=== PATIENT | male | born 1965 | race Caucasian/White ===

== ENCOUNTER 2016-05-03 08:38 | Emergency (ER) | payer MEDICAID ==
[~2016-05-03] VITALS: Wt 80.0 kg
[~2016-05-03 08:38] MED LIST: BAC30OI TOP; BACTDS PO
[2016-05-03] MEDS ORDERED: GUAI-637 PO (09:48)
[2016-05-03] MEDS ORDERED: IBUP-1542 PO (09:48)
--- NOTE | 2016-05-03 09:59 | ERD ---
ER Documentation Chief Complaint Date/Time DATE: 05/03/16 TIME: 09:54 Chief Complaint sore throat with intermittent fevers for the past few hours. HPI 50-year-old male complaining of sore throat 3 days. Patient states that he had a subjective fever last night. He has a cough, and lower back pain with cough. He is unable to sleep last night because of cough and back pain. Denies nasal congestion. Denies shortness of breath. ROS All systems reviewed and are negative except as per history of present illness. Medications Home Meds Active Scripts Guaifenesin* (Robitussin*) 100 Mg/5 Ml Syrup, 200 MG PO Q4H Y for COUGH, #120 ML Prov:KARISHMA MORA. PRINCIPAL SOFTWARE ENGINEER 05/03/16 Ibuprofen* (Motrin*) 600 Mg Tab, 600 MG PO Q6H Y for PAIN AND OR ELEVATED TEMP, #30 TAB Prov:KARISHMA MORA. PRINCIPAL SOFTWARE ENGINEER 05/03/16 Bacitracin* (Bacitracin Zinc Oint*) 28.35 Gm Oint, 1 APPLIC TOP BID, #1 TUB APPLI TO Prov:FADY WEAVER PA-C 06/21/15 Sulfamethoxazole-Trimethoprim* (Bactrim* DS) 800-160 Mg Tab, 1 TAB PO BID for 5 Days, TAB Prov:FADY WEAVER PA-C 06/21/15 Allergies Allergies: Coded Allergies: Penicillins (Verified Allergy, Unknown, 06/15/15) PMhx/Soc History of Surgery: Yes (LEFT ELBOW SURGERY ) Anesthesia Reaction: No Hx Neurological Disorder: No Hx Respiratory Disorders: No Hx Cardiac Disorders: No Hx Psychiatric Problems: No Hx Miscellaneous Medical Probl: Yes (HTN) Hx Alcohol Use: No Hx Substance Use: No Hx Tobacco Use: No Smoking Status: Never smoker Physical Exam Vitals Vital Signs Date Time Temp Pulse Resp B/P Pulse Ox O2 Delivery O2 Flow Rate FiO2 05/03/16 08:42 98.8 81 20 133/64 98 Physical Exam General impression: Well-developed, well-nourished, 50-year-old male, alert, oriented, in no acute distress Head: Normocephalic, atraumatic. Eyes: Conjunctiva not injected. ENT: Nasal mucosa, oral mucosa are normal. Mild erythema in the oropharynx, no pharyngeal swelling or exudates. Neck: Supple, nontender. No lymphanopathy. No nuchal rigidity. Respiration: Normal respiratory effort. Lungs clear to auscultate bilaterally. No wheezes, rales or rhonchi. Cardiovascular: Regular rate and rhythm. No murmurs or extra heart sounds. Abdomen: Abdomen normal to inspection. Nontender. No masses or organomegaly. Bowel sounds normal. Back: Normal to inspection. No midline spine tenderness. No CVA tenderness. Paraspinal muscle spasm noted bilaterally in the lumbar region. Neuro: Mental status normal, speech normal. Skin: Normal turgor. No rash or lesions. Psych: Normal mood and affect. Procedures/MDM Patient is afebrile, in no respiratory distress. Lungs are clear to auscultate. I doubt that patient has pneumonia or bronchitis. Likely patient's symptoms are result of viral upper respiratory infection. Patient also has lower back muscle spasm. I doubt spinal fracture, subluxation, disc herniation, or spinal epidural abscess. Patient appears well, stable for discharge and outpatient management. Medical decision making shared with patient and family. Education provided to patient and family. Patient and family expressed understanding of the plan. Medications on discharge: Ibuprofen, guaifenesin. Follow-up: Primary care provider in 2-3 days or return to ED if worse. Departure Diagnosis: Primary Impression: URI (upper respiratory infection) URI type: acute nasopharyngitis (common cold) Qualified Code: J00 - Acute nasopharyngitis Additional Impression: Back spasm Condition: Stable Patient Instructions: Adult Self-Care for Colds, Back Spasm, No Trauma Referrals: [facility] Usted se john hecho un examen mdico de control que le indica que no est en madeline condicin que requiera tratamiento urgente en el Departamento de Emergencia. Un estudio ms profundo y el tratamiento de rodríguez condicin pueden esperar sin ningn riesgo hasta que usted sea atendida/o en el consultorio de rodríguez mdico o madeline cl aletha. Es responsabilidad suya arreglar madeline geraldine para el seguimiento del ena. MANEJO DE CONDICIONES NO URGENTES EN EL FUTURO 1) Si usted tiene un mdico de atencin primaria: Usted debera llamar a rodríguez mdico de atencin primaria antes de venir al departamento de emergencia. Despus de las horas de consultorio, rodríguez doctor o rodríguez asociado/a est disponible por telfono. El mdico o enfermero de reji en el servicio telefnico puede asesorarle por lopez medio para atender el problema, o ena contrario se puede programar madeline geraldine. 2) Si usted no tiene un mdico de atencin primaria: Llame al mdico o clnica de referencia que aparece abajo snow las horas de consultorio para hacer madeline geraldine para que le vean. CLINICAS: [facility] [phone] [facility] [phone] [facility] [phone] [place] [phone] [place] [id number] [phone] [facility] [phone] Additional Instructions: Llame al doctor MAANA y gregg madeline GERALDINE PARA DENTRO DE 2-3 MURRIETA.Dgale a la secretaria que nosotros le instruimos hacer esta geraldine.Avise o llame si rodríguez condicin se empeora antes de la geraldine. Regresa aqui si peor o no mejor. KARISHMA MORA NP May 03, 2016 09:59
== END 2016-05-03 10:13 | disposition home or self-care (01) ==
LOC: FTE 08:38
DX: J00 Acute nasopharyngitis [common cold] (principal); M62.830 Muscle spasm of back; I10 Essential (primary) hypertension
CPT/HCPCS: 99283

== ENCOUNTER 2016-07-02 08:22 | Emergency (ER) | END 2016-07-02 09:00 | disposition home or self-care (01) | DX: R21 Rash and other nonspecific skin eruption (principal); I10 Essential (primary) hypertension ==

== ENCOUNTER 2017-02-15 19:19 | Emergency (ER) | payer MEDICAID ==
[~2017-02-15] VITALS: Ht 170.2 cm; Wt 81.5 kg
[~2017-02-15 19:19] MED LIST changes: -BAC30OI TOP; +BACI28.34 TOP; +CLOB60CR2 TOP; +GUAI-637 PO; +IBUP-1542 PO
[2017-02-15 19:31] VITALS: Ht 170.2 cm; Wt 81.5 kg
[2017-02-15 23:26] VITALS: BP 145/84; PULSE 55; RESP 20
--- NOTE | 2017-02-16 01:31 | RADRPT ---
PROCEDURE: CT HEAD WITHOUT CONTRAST: CLINICAL INDICATION: 51 years of age, male. 6-month history of right arm and leg on and off . TECHNIQUE: CT of the head was performed without IV contrast. Coronal and sagittal reformatted images were obtained from the axial source images. Images were reviewed on a high-resolution PACS workstat ion. Dose information: The estimated radiation dose (CTDIvol mGy) for each series in this exam is 44. Th e estimated cumulative dose (DLP mGy-cm) is a 720. One or more of the following dose reduction techniques were used: - Automated exposure control. - Adjustment of the mA and/or kV according to patient size. - Use of iterative reconstruction technique. COMPARISON: None available. FINDINGS: Parenchyma: Negative for evidence of acute intraparenchymal hemorrhage, mass effect or large territo ry infarct. Davila-white matter differentiation is maintained. Ventricles and extra-axial spaces: Appropriate for age. No abnormal extra-axial fluid collections ar e identified. Negative for evidence of acute subarachnoid or extra-axial hemorrhage. Visualized paranasal sinuses: Clear. Mastoid air cells: Clear. Bones: No focal abnormality. Additional comment: None. IMPRESSION: Negative CT brain for age. Negative for evidence of an acute intracranial abnormality. Cause for pat ient's symptoms is not evident. RPTAT: HCTS Physician Fernando Date Time Electronically viewed and signed by Physician Fernando on 02/16/2017 01:31 CS/
[2017-02-16] MEDS ORDERED: HYDR25TA6 PO (01:41)
--- NOTE | 2017-02-16 01:55 | ERD ---
ER Documentation Chief Complaint Chief Complaint Pt. not taking med for B/P, he has no primary MD. HPI 51-year-old male history of hypertension presents for a medication refill. The patient does state that he was able to get an appointment for Saturday at a nearby [facility] clinic for his hypertension, this but does not recall the medication. Since he has run out he has been drinking a tea states that he has a dull achy headache. He had denies blurred vision, nausea, chest pain, shortness of breath. As the patient was about to be discharged she then started complaining of right arm numbness and right leg numbness that has been on and off for 6 months lasting up to 2-3 minutes. At this time he denies paresthesias. He has not had any motor weakness. ROS All systems reviewed and are negative except as per history of present illness. Medications Home Meds Active Scripts Hydrochlorothiazide* (Hydrochlorothiazide*) 25 Mg Tab, 25 MG PO DAILY, #15 TAB Prov:FADY WEAVER PA-C 02/16/17 Clobetasol Propionate* (Clobetasol Propionate*) 60 Gm Cream.gm., 1 APPLIC TOP BID, #1 TUB Prov:JOSIAH MCKEE AQUEDUCT AND RESERVOIR KEEPER 07/02/16 Guaifenesin* (Robitussin*) 100 Mg/5 Ml Syrup, 200 MG PO Q4H Y for COUGH, #120 ML Prov:KARISHMA MORA AQUEDUCT AND RESERVOIR KEEPER 05/03/16 Ibuprofen* (Motrin*) 600 Mg Tab, 600 MG PO Q6H Y for PAIN AND OR ELEVATED TEMP, #30 TAB Prov:KARISHMA MORA AQUEDUCT AND RESERVOIR KEEPER 05/03/16 Bacitracin* (Bacitracin Zinc Oint*) 28.35 Gm Oint, 1 APPLIC TOP BID, #1 TUB APPLI TO Prov:FADY WEAVER PA-C 06/21/15 Sulfamethoxazole-Trimethoprim* (Bactrim* DS) 800-160 Mg Tab, 1 TAB PO BID for 5 Days, TAB Prov:FADY WEAVER PA-C 06/21/15 Allergies Allergies: Coded Allergies: Penicillins (Verified Allergy, Unknown, 06/15/15) PMhx/Soc History of Surgery: Yes (LEFT ELBOW SURGERY ) Anesthesia Reaction: No Hx Neurological Disorder: No Hx Respiratory Disorders: No Hx Cardiac Disorders: No Hx Psychiatric Problems: No Hx Miscellaneous Medical Probl: Yes (HTN) Hx Alcohol Use: No Hx Substance Use: No Hx Tobacco Use: No Physical Exam Vitals Vital Signs Date Time Temp Pulse Resp B/P Pulse Ox O2 Delivery O2 Flow Rate FiO2 02/15/17 23:26 55 20 145/84 99 Room Air 02/15/17 19:31 98.7 60 20 165/103 98 Physical Exam General: Well-developed, well-nourished. The patient appears in no acute distress. HEENT: Head is normocephalic, atraumatic. No scleral icterus. Pupils are equal , round, and reactive. Neck: Supple. Nontender. Lungs: Clear to auscultation. Normal air movement. Heart: Regular rate and rhythm. S1 and S2 are normal. No murmurs, gallops, or rubs. Abdomen: Soft, nontender, nondistended. Bowel sounds are normoactive. Extremities: No clubbing or cyanosis. Normal pulses. Moving extremities x 4. No weakness. Neuro: M/S: Alert and oriented Face: EOMI, CN II-XII grossly intact Motor: Normal strength throughout Sensation: Normal sensation throughout Speech: Normal Cerebel: Normal coordination Normal gait Normal finger to nose DTR: 2+ and symmetric upper/lower extremities Skin: Normal turgor. No rash or lesions. Results 24 hrs DIAGNOSTIC IMAGING REPORT Patient: MARY KATE REESE : 1965 Age: 51 Sex: M MR #: [id number] DOS: 02/15/17 2358 Ordering MD: FADY WEAVER PA-C Location: [facility] Room/Bed: PROCEDURE: CT HEAD WITHOUT CONTRAST: CLINICAL INDICATION: 51 years of age, male. 6-month history of right arm and leg on and off . TECHNIQUE: CT of the head was performed without IV contrast. Coronal and sagittal reformatted images were obtained from the axial source images. Images were reviewed on a high-resolution PACS workstation. Dose information: The estimated radiation dose (CTDIvol mGy) for each series in this exam is 44. The estimated cumulative dose (DLP mGy-cm) is a 720. One or more of the following dose reduction techniques were used: - Automated exposure control. - Adjustment of the mA and/or kV according to patient size. - Use of iterative reconstruction technique. COMPARISON: None available. FINDINGS: Parenchyma: Negative for evidence of acute intraparenchymal hemorrhage, mass effect or large territory infarct. Davila-white matter differentiation is maintained. Ventricles and extra-axial spaces: Appropriate for age. No abnormal extra-axial fluid collections are identified. Negative for evidence of acute subarachnoid or extra-axial hemorrhage. Visualized paranasal sinuses: Clear. Mastoid air cells: Clear. Bones: No focal abnormality. Additional comment: None. IMPRESSION: Negative CT brain for age. Negative for evidence of an acute intracranial abnormality. Cause for patient's symptoms is not evident. RPTAT: HCTS Physician Fernando Date Time Electronically viewed and signed by Pravin Lundberg Physician on 02/16/2017 01: 31 CS/ CC: FADY WEAVER PA-C Procedures/[facility] 51-year-old male comes in with history of hypertension, is currently not on medication but has an appointment for early next week. Patient does not show any history concerning for hypertensive urgency or emergency or focal neurologic changes. His examination is normal and reports that he has had on and off paresthesias to his right arm as well as his right leg. Patient CT scan of the head does not show evidence of ischemia, or evidence of infarct. This is likely a peripheral paresthesias but may be followed up with his primary care doctor. He will be given hydrochlorothiazide for 2 weeks, but was advised that he needs a follow-up with a primary care doctor for further evaluation and management of his hypertension. Patient's blood pressure was elevated (>120/80) but appears stable without evidence of hypertension emergency or urgency. The patient was counseled about the risks of hypertension and urged to pursue outpatient monitoring and therapy within a week with their primary care physician. Departure Diagnosis: Primary Impression: Paresthesias Additional Impression: Hypertension Condition: Good Patient Instructions: High Blood Pressure (Hypertension), Paraesthesias Additional Instructions: Llame al doctor BARRIE y gregg madeline GERALDINE PARA DENTRO DE 1-2 MURRIETA.Dgale a la secretaria que nosotros le instruimos hacer esta geraldine.Avise o llame si rodríguez condicin se empeora antes de la geraldine. Regresa aqui si peor o no mejor. FADY WEAVER PA-C Feb 16, 2017 01:55
--- NOTE | 2017-02-16 01:55 | ERD ---
ER Documentation Chief Complaint Chief Complaint Pt. not taking med for B/P, he has no primary MD. HPI 51-year-old male history of hypertension presents for a medication refill. The patient does state that he was able to get an appointment for Saturday at a nearby [facility] clinic for his hypertension, this but does not recall the medication. Since he has run out he has been drinking a tea states that he has a dull achy headache. He had denies blurred vision, nausea, chest pain, shortness of breath. As the patient was about to be discharged she then started complaining of right arm numbness and right leg numbness that has been on and off for 6 months lasting up to 2-3 minutes. At this time he denies paresthesias. He has not had any motor weakness. ROS All systems reviewed and are negative except as per history of present illness. Medications Home Meds Active Scripts Hydrochlorothiazide* (Hydrochlorothiazide*) 25 Mg Tab, 25 MG PO DAILY, #15 TAB Prov:FADY WEAVER PA-C 02/16/17 Clobetasol Propionate* (Clobetasol Propionate*) 60 Gm Cream.gm., 1 APPLIC TOP BID, #1 TUB Prov:JOSIAH MCKEE ROAD GANG SUPERVISOR 07/02/16 Guaifenesin* (Robitussin*) 100 Mg/5 Ml Syrup, 200 MG PO Q4H Y for COUGH, #120 ML Prov:KARISHMA MORA ROAD GANG SUPERVISOR 05/03/16 Ibuprofen* (Motrin*) 600 Mg Tab, 600 MG PO Q6H Y for PAIN AND OR ELEVATED TEMP, #30 TAB Prov:KARISHMA MORA ROAD GANG SUPERVISOR 05/03/16 Bacitracin* (Bacitracin Zinc Oint*) 28.35 Gm Oint, 1 APPLIC TOP BID, #1 TUB APPLI TO Prov:FADY WEAVER PA-C 06/21/15 Sulfamethoxazole-Trimethoprim* (Bactrim* DS) 800-160 Mg Tab, 1 TAB PO BID for 5 Days, TAB Prov:FADY WEAVER PA-C 06/21/15 Allergies Allergies: Coded Allergies: Penicillins (Verified Allergy, Unknown, 06/15/15) PMhx/Soc History of Surgery: Yes (LEFT ELBOW SURGERY ) Anesthesia Reaction: No Hx Neurological Disorder: No Hx Respiratory Disorders: No Hx Cardiac Disorders: No Hx Psychiatric Problems: No Hx Miscellaneous Medical Probl: Yes (HTN) Hx Alcohol Use: No Hx Substance Use: No Hx Tobacco Use: No Physical Exam Vitals Vital Signs Date Time Temp Pulse Resp B/P Pulse Ox O2 Delivery O2 Flow Rate FiO2 02/15/17 23:26 55 20 145/84 99 Room Air 02/15/17 19:31 98.7 60 20 165/103 98 Physical Exam General: Well-developed, well-nourished. The patient appears in no acute distress. HEENT: Head is normocephalic, atraumatic. No scleral icterus. Pupils are equal , round, and reactive. Neck: Supple. Nontender. Lungs: Clear to auscultation. Normal air movement. Heart: Regular rate and rhythm. S1 and S2 are normal. No murmurs, gallops, or rubs. Abdomen: Soft, nontender, nondistended. Bowel sounds are normoactive. Extremities: No clubbing or cyanosis. Normal pulses. Moving extremities x 4. No weakness. Neuro: M/S: Alert and oriented Face: EOMI, CN II-XII grossly intact Motor: Normal strength throughout Sensation: Normal sensation throughout Speech: Normal Cerebel: Normal coordination Normal gait Normal finger to nose DTR: 2+ and symmetric upper/lower extremities Skin: Normal turgor. No rash or lesions. Results 24 hrs DIAGNOSTIC IMAGING REPORT Patient: MARY KATE REESE : 1965 Age: 51 Sex: M MR #: [id number] DOS: 02/15/17 2358 Ordering MD: FADY WEAVER PA-C Location: [facility] Room/Bed: PROCEDURE: CT HEAD WITHOUT CONTRAST: CLINICAL INDICATION: 51 years of age, male. 6-month history of right arm and leg on and off . TECHNIQUE: CT of the head was performed without IV contrast. Coronal and sagittal reformatted images were obtained from the axial source images. Images were reviewed on a high-resolution PACS workstation. Dose information: The estimated radiation dose (CTDIvol mGy) for each series in this exam is 44. The estimated cumulative dose (DLP mGy-cm) is a 720. One or more of the following dose reduction techniques were used: - Automated exposure control. - Adjustment of the mA and/or kV according to patient size. - Use of iterative reconstruction technique. COMPARISON: None available. FINDINGS: Parenchyma: Negative for evidence of acute intraparenchymal hemorrhage, mass effect or large territory infarct. Davila-white matter differentiation is maintained. Ventricles and extra-axial spaces: Appropriate for age. No abnormal extra-axial fluid collections are identified. Negative for evidence of acute subarachnoid or extra-axial hemorrhage. Visualized paranasal sinuses: Clear. Mastoid air cells: Clear. Bones: No focal abnormality. Additional comment: None. IMPRESSION: Negative CT brain for age. Negative for evidence of an acute intracranial abnormality. Cause for patient's symptoms is not evident. RPTAT: HCTS Physician Fernando Date Time Electronically viewed and signed by Pravin Lundberg Physician on 02/16/2017 01: 31 CS/ CC: FADY WEAVER PA-C Procedures/[facility] 51-year-old male comes in with history of hypertension, is currently not on medication but has an appointment for early next week. Patient does not show any history concerning for hypertensive urgency or emergency or focal neurologic changes. His examination is normal and reports that he has had on and off paresthesias to his right arm as well as his right leg. Patient CT scan of the head does not show evidence of ischemia, or evidence of infarct. This is likely a peripheral paresthesias but may be followed up with his primary care doctor. He will be given hydrochlorothiazide for 2 weeks, but was advised that he needs a follow-up with a primary care doctor for further evaluation and management of his hypertension. Patient's blood pressure was elevated (>120/80) but appears stable without evidence of hypertension emergency or urgency. The patient was counseled about the risks of hypertension and urged to pursue outpatient monitoring and therapy within a week with their primary care physician. Departure Diagnosis: Primary Impression: Paresthesias Additional Impression: Hypertension Condition: Good Patient Instructions: High Blood Pressure (Hypertension), Paraesthesias Additional Instructions: Llame al doctor BARRIE y gregg madeline GERALDINE PARA DENTRO DE 1-2 MURRIETA.Dgale a la secretaria que nosotros le instruimos hacer esta geraldine.Avise o llame si rodríguez condicin se empeora antes de la geraldine. Regresa aqui si peor o no mejor. FADY WEAVER PA-C Feb 16, 2017 01:55
--- NOTE | 2017-02-16 01:55 | ERD ---
ER Documentation Chief Complaint Chief Complaint Pt. not taking med for B/P, he has no primary MD. HPI 51-year-old male history of hypertension presents for a medication refill. The patient does state that he was able to get an appointment for Saturday at a nearby [facility] for his hypertension, this but does not recall the medication. Since he has run out he has been drinking a tea states that he has a dull achy headache. He had denies blurred vision, nausea, chest pain, shortness of breath. As the patient was about to be discharged she then started complaining of right arm numbness and right leg numbness that has been on and off for 6 months lasting up to 2-3 minutes. At this time he denies paresthesias. He has not had any motor weakness. ROS All systems reviewed and are negative except as per history of present illness. Medications Home Meds Active Scripts Hydrochlorothiazide* (Hydrochlorothiazide*) 25 Mg Tab, 25 MG PO DAILY, #15 TAB Prov:FADY WEAVER PA-C 02/16/17 Clobetasol Propionate* (Clobetasol Propionate*) 60 Gm Cream.gm., 1 APPLIC TOP BID, #1 TUB Prov:JOSIAH MCKEE VENTILATION WORKER 07/02/16 Guaifenesin* (Robitussin*) 100 Mg/5 Ml Syrup, 200 MG PO Q4H Y for COUGH, #120 ML Prov:KARISHMA MORA VENTILATION WORKER 05/03/16 Ibuprofen* (Motrin*) 600 Mg Tab, 600 MG PO Q6H Y for PAIN AND OR ELEVATED TEMP, #30 TAB Prov:KARISHMA MORA VENTILATION WORKER 05/03/16 Bacitracin* (Bacitracin Zinc Oint*) 28.35 Gm Oint, 1 APPLIC TOP BID, #1 TUB APPLI TO Prov:FADY WEAVER PA-C 06/21/15 Sulfamethoxazole-Trimethoprim* (Bactrim* DS) 800-160 Mg Tab, 1 TAB PO BID for 5 Days, TAB Prov:FADY WEAVER PA-C 06/21/15 Allergies Allergies: Coded Allergies: Penicillins (Verified Allergy, Unknown, 06/15/15) PMhx/Soc History of Surgery: Yes (LEFT ELBOW SURGERY ) Anesthesia Reaction: No Hx Neurological Disorder: No Hx Respiratory Disorders: No Hx Cardiac Disorders: No Hx Psychiatric Problems: No Hx Miscellaneous Medical Probl: Yes (HTN) Hx Alcohol Use: No Hx Substance Use: No Hx Tobacco Use: No Physical Exam Vitals Vital Signs Date Time Temp Pulse Resp B/P Pulse Ox O2 Delivery O2 Flow Rate FiO2 02/15/17 23:26 55 20 145/84 99 Room Air 02/15/17 19:31 98.7 60 20 165/103 98 Physical Exam General: Well-developed, well-nourished. The patient appears in no acute distress. HEENT: Head is normocephalic, atraumatic. No scleral icterus. Pupils are equal , round, and reactive. Neck: Supple. Nontender. Lungs: Clear to auscultation. Normal air movement. Heart: Regular rate and rhythm. S1 and S2 are normal. No murmurs, gallops, or rubs. Abdomen: Soft, nontender, nondistended. Bowel sounds are normoactive. Extremities: No clubbing or cyanosis. Normal pulses. Moving extremities x 4. No weakness. Neuro: M/S: Alert and oriented Face: EOMI, CN II-XII grossly intact Motor: Normal strength throughout Sensation: Normal sensation throughout Speech: Normal Cerebel: Normal coordination Normal gait Normal finger to nose DTR: 2+ and symmetric upper/lower extremities Skin: Normal turgor. No rash or lesions. Results 24 hrs DIAGNOSTIC IMAGING REPORT Patient: MARY KATE REESE : 1965 Age: 51 Sex: M MR #: [id number] DOS: 02/15/17 2358 Ordering MD: FADY WEAVER PA-C Location: [facility] Room/Bed: PROCEDURE: CT HEAD WITHOUT CONTRAST: CLINICAL INDICATION: 51 years of age, male. 6-month history of right arm and leg on and off . TECHNIQUE: CT of the head was performed without IV contrast. Coronal and sagittal reformatted images were obtained from the axial source images. Images were reviewed on a high-resolution PACS workstation. Dose information: The estimated radiation dose (CTDIvol mGy) for each series in this exam is 44. The estimated cumulative dose (DLP mGy-cm) is a 720. One or more of the following dose reduction techniques were used: - Automated exposure control. - Adjustment of the mA and/or kV according to patient size. - Use of iterative reconstruction technique. COMPARISON: None available. FINDINGS: Parenchyma: Negative for evidence of acute intraparenchymal hemorrhage, mass effect or large territory infarct. Davila-white matter differentiation is maintained. Ventricles and extra-axial spaces: Appropriate for age. No abnormal extra-axial fluid collections are identified. Negative for evidence of acute subarachnoid or extra-axial hemorrhage. Visualized paranasal sinuses: Clear. Mastoid air cells: Clear. Bones: No focal abnormality. Additional comment: None. IMPRESSION: Negative CT brain for age. Negative for evidence of an acute intracranial abnormality. Cause for patient's symptoms is not evident. RPTAT: HCTS Physician Fernando Date Time Electronically viewed and signed by Pravin Lundberg Physician on 02/16/2017 01: 31 CS/ CC: FADY WEAVER PA-C Procedures/[facility] 51-year-old male comes in with history of hypertension, is currently not on medication but has an appointment for early next week. Patient does not show any history concerning for hypertensive urgency or emergency or focal neurologic changes. His examination is normal and reports that he has had on and off paresthesias to his right arm as well as his right leg. Patient CT scan of the head does not show evidence of ischemia, or evidence of infarct. This is likely a peripheral paresthesias but may be followed up with his primary care doctor. He will be given hydrochlorothiazide for 2 weeks, but was advised that he needs a follow-up with a primary care doctor for further evaluation and management of his hypertension. Patient's blood pressure was elevated (>120/80) but appears stable without evidence of hypertension emergency or urgency. The patient was counseled about the risks of hypertension and urged to pursue outpatient monitoring and therapy within a week with their primary care physician. Departure Diagnosis: Primary Impression: Paresthesias Additional Impression: Hypertension Condition: Good Patient Instructions: High Blood Pressure (Hypertension), Paraesthesias Additional Instructions: Llame al doctor BARRIE y gregg madeline GERALDINE PARA DENTRO DE 1-2 MURRIETA.Dgale a la secretaria que nosotros le instruimos hacer esta geraldine.Avise o llame si rodríguez condicin se empeora antes de la geraldine. Regresa aqui si peor o no mejor. FADY WEAVER PA-C Feb 16, 2017 01:55
== END 2017-02-16 02:05 | disposition home or self-care (01) ==
LOC: FTE 19:19
DX: R20.2 Paresthesia of skin (principal); I10 Essential (primary) hypertension
CPT/HCPCS: 70450; Z7502

== ENCOUNTER 2017-11-19 21:11 | Emergency (ER) | END 2017-11-20 01:10 | disposition home or self-care (01) ==

== ENCOUNTER 2017-12-07 15:31 | Emergency (ER) | END 2017-12-07 18:15 | disposition home or self-care (01) ==

== ENCOUNTER 2018-01-20 20:06 | Emergency (ER) | END 2018-01-20 22:30 | disposition home or self-care (01) ==

== ENCOUNTER 2018-09-05 18:05 | Observation (INO) | payer MEDICAID ==
[~2018-09-05] VITALS: Ht 165.1 cm; Wt 79.9 kg
[~2018-09-05 18:05] MED LIST changes: +ACET500C5 PO; +CEPH-443 PO; +HYDR-4011 PO; +HYDR25TA6 PO; +LORA10CA PO
[2018-09-05] MEDS ORDERED: ASPIRIN 81 MG TAB PO STA (18:26)
[2018-09-05] MEDS ORDERED: NITROGLYCERIN 2% 1 GM OINT PKT TD STA (18:26)
[2018-09-05] MEDS ORDERED: NITROGLYCERIN (SL) 0.4 MG TAB SL PRN ×2 (18:30→23:30)
[2018-09-05] MEDS ORDERED: ACETAMINOPHEN 325 MG TAB PO PRN (20:00)
[2018-09-05] MEDS ORDERED: ONDANSETRON 4 MG INJ IV PRN ×2 (20:00→23:30)
--- NOTE | 2018-09-05 21:06 | ERD ---
ER Documentation Chief Complaint Chief Complaint CHEST PAIN X5 DAYS, SENT BY PCP HPI Patient is a 53-year-old male with no medical problems who presents with chest pain. The patient was sent by his primary doctor for chest pain. He has left- sided chest pain which started on Saturday. It comes and goes. He has had no treatment yet for the pain. He took an 81 mg aspirin today. He goes to a local clinic but does not know the name of his primary doctor. ROS All systems reviewed and are negative except as per history of present illness. Medications Home Meds Active Scripts Loratadine* (Claritin*) 10 Mg Capsule, 10 MG PO DAILY, #15 CAP Prov:BONNY BRITOC 01/20/18 Acetaminophen* (Tylophen*) 500 Mg Capsule, 1 CAP PO Q6H PRN for PAIN AND OR ELEVATED TEMP, #30 CAP Prov:MATILDA FUNEZC 12/07/17 Cephalexin* (Keflex*) 500 Mg Capsule, 500 MG PO QID for 7 Days, CAP Prov:MATILDA FUNEZC 12/07/17 Hydrocodone/Acetaminophen (Brutus 5-325 Tablet) 1 Each Tablet, 1 TAB PO Q6H PRN for SEVERE PAIN LEVEL 7-10, #20 TAB Prov:MANSI MENDOZA NP 11/20/17 Ibuprofen* (Motrin*) 600 Mg Tab, 600 MG PO Q6H PRN for PAIN AND OR ELEVATED TEMP, #30 TAB Prov:MANSI MENDOZA NP 11/20/17 Hydrochlorothiazide* (Hydrochlorothiazide*) 25 Mg Tab, 25 MG PO DAILY, #15 TAB Prov:FADY WEAVERC 02/16/17 Clobetasol Propionate* (Clobetasol Propionate*) 60 Gm Cream.gm., 1 APPLIC TOP BID, #1 TUB Prov:JOSIAH MCKEE PUBLIC TRANSIT SPECIALIST 07/02/16 Guaifenesin* (Robitussin*) 100 Mg/5 Ml Syrup, 200 MG PO Q4H PRN for COUGH, #120 ML Prov:KARISHMA MORA NP 05/03/16 Ibuprofen* (Motrin*) 600 Mg Tab, 600 MG PO Q6H PRN for PAIN AND OR ELEVATED TEMP, #30 TAB Prov:KARISHMA MORA PUBLIC TRANSIT SPECIALIST 05/03/16 Bacitracin* (Bacitracin Zinc Oint*) 28.35 Gm Oint, 1 APPLIC TOP BID, #1 TUB APPLI TO Prov:FADY WEAVER PA-C 06/21/15 Sulfamethoxazole-Trimethoprim* (Bactrim* DS) 800-160 Mg Tab, 1 TAB PO BID for 5 Days, TAB Prov:FADY WEAVER PA-C 06/21/15 Allergies Allergies: Coded Allergies: Penicillins (Verified Allergy, Unknown, 01/20/18) PMhx/Soc History of Surgery: Yes (LEFT ELBOW SURGERY ) Anesthesia Reaction: No Hx Neurological Disorder: No Hx Respiratory Disorders: No Hx Cardiac Disorders: No Hx Psychiatric Problems: No Hx Miscellaneous Medical Probl: No Hx Alcohol Use: Yes Hx Substance Use: No Hx Tobacco Use: No Smoking Status: Never smoker FmHx Family History: No coronary disease Physical Exam Vitals Vital Signs Date Temp Pulse Resp B/P (MAP) Pulse Ox O2 O2 Flow FiO2 Time Delivery Rate 09/05/18 99.1 59 17 119/82 98 20:54 (94) 09/05/18 99.1 66 16 128/84 99 19:43 (99) 09/05/18 99.1 64 16 143/79 99 18:50 (100) 09/05/18 99.1 69 16 156/92 99 18:18 (113) Physical Exam Const: No acute distress Head: Atraumatic Eyes: Normal Conjunctiva ENT: Normal External Ears, Nose and Mouth. Neck: Full range of motion. No meningismus. Resp: Clear to auscultation bilaterally Cardio: Regular rate and rhythm, no murmurs Abd: Soft, non tender, non distended. Normal bowel sounds Skin: No petechiae or rashes Back: No midline or flank tenderness Ext: No cyanosis, or edema Neur: Awake and alert Psych: Normal Mood and Affect Result Diagram: 09/05/18 18309/05/18 183 Results 24 hrs Laboratory Tests Test 09/05/18 18:31 White Blood Count 4.5 10^3/ul Red Blood Count 4.92 10^6/ul Hemoglobin 14.2 g/dl Hematocrit 42.0 % Mean Corpuscular Volume 85.4 fl Mean Corpuscular Hemoglobin 28.9 pg Mean Corpuscular Hemoglobin Concent 33.8 g/dl Red Cell Distribution Width 11.9 % Platelet Count 221 10^3/UL Mean Platelet Volume 9.0 fl Immature Granulocytes % 0.400 % Neutrophils % 63.5 % Lymphocytes % 19.9 % Monocytes % 13.2 % Eosinophils % 2.6 % Basophils % 0.4 % Nucleated Red Blood Cells % 0.0 /100WBC Immature Granulocytes # 0.020 10^3/ul Neutrophils # 2.9 10^3/ul Lymphocytes # 0.9 10^3/ul Monocytes # 0.6 10^3/ul Eosinophils # 0.1 10^3/ul Basophils # 0.0 10^3/ul Nucleated Red Blood Cells # 0.0 10^3/ul Sodium Level 143 mmol/L Potassium Level 3.8 mmol/L Chloride Level 106 mmol/L Carbon Dioxide Level 29 mmol/L Anion Gap 8 Blood Urea Nitrogen 17 mg/dl Creatinine 0.72 mg/dl Est Glomerular Filtrat Rate mL/min > 60 mL/min Glucose Level 136 mg/dl Calcium Level 8.6 mg/dl Troponin I < 0.012 ng/ml Current Medications Medications Dose Sig/Yasmine Start Time Status Last (Trade) Ordered Route PRN Stop Time Admin Dose Reason Admin Aspirin 162 mg ONCE STAT 09/05/18 DC 09/05/18 (Aspirin) PO 18:26 18:45 09/05/18 18:27 1 inch ONCE STAT 09/05/18 DC 09/05/18 Nitroglycerin TD 18:26 18:45 09/05/18 18:27 (Nitroglyceri n 2% Oint) 1 tab Q5M UP TO 3 09/05/18 09/05/18 Nitroglycerin DOSES PRN 18:30 18:45 SL .CHEST (Nitroglyceri PAIN n (Sl Tab) 0.4 Mg) Ondansetron 4 mg ER BRIDGE 09/05/18 HCl (Zofran PRN IV 20:00 Inj) NAUSEA/VOMITI 09/06/18 19:59 NG 650 mg ER BRIDGE 09/05/18 Acetaminophen PRN PO 20:00 (Tylenol .MILD PAIN 09/06/18 19:59 Tab) 1-3 OR TEMP Procedures/MDM EKG #1 read by me: Rate/Rhythm: Regular rate and rhythm at a normal rate Intervals: Normal Impression: Flipped T waves diffusely EKG #2 read by me: Rate/Rhythm: Regular rate and rhythm at a normal rate Intervals: Normal Impression: Flipped T waves diffusely Chest x-ray read by radiology. Patient is a 53-year-old male who presents with chest pain. He has an abnormal EKG x2 with flipped T waves diffusely. I am concerned for possible acute c oronary syndrome. I doubt pneumonia, pneumothorax, pulmonary embolism, or aortic dissection. The patient will be admitted to the care of the panel team to a telemetry observation bed. He was given aspirin and nitroglycerin empirically. Departure Diagnosis: Primary Impression: Chest pain Chest pain type: unspecified Qualified Codes: R07.9 - Chest pain, unspecified Condition: LUKAS Austin MD September 05, 2018 21:06
[2018-09-05 22:47] VITALS: Ht 165.1 cm; Wt 79.9 kg
[2018-09-05 23:00] VITALS: BP 164/90; PULSE 57; RESP 20
[2018-09-05 23:09] VITALS: PULSE 52
--- NOTE | 2018-09-05 23:24 | HP ---
Date/Time of Note Date/Time of Note DATE: 09/05/18 TIME: 23:24 Assessment/Plan VTE Prophylaxis Pharmacological prophylaxis: other Lines/Catheters IV Catheter Type (from Nrsg): Saline Lock Assessment/Plan Assessment/Plan 53-year-old male with no significant past medical history presents with chest pain with EKG showing diffuse T wave inversion, first troponin is negative. Need to rule out ACS. PLAN -Telemetry monitoring -Aspirin, as needed nitro -Serial troponin -Beta-esperanza if heart rate allows -2D echo and cardiology consult -Check A1c, fasting lipid and TSH in a.m. Result Diagram: 09/05/18 1831 09/05/18 1831 Results 24hrs Laboratory Tests Test 09/05/18 18:31 White Blood Count 4.5 L Red Blood Count 4.92 Hemoglobin 14.2 Hematocrit 42.0 Mean Corpuscular Volume 85.4 Mean Corpuscular Hemoglobin 28.9 L Mean Corpuscular Hemoglobin Concent 33.8 Red Cell Distribution Width 11.9 Platelet Count 221 Mean Platelet Volume 9.0 Immature Granulocytes % 0.400 Neutrophils % 63.5 Lymphocytes % 19.9 Monocytes % 13.2 H Eosinophils % 2.6 Basophils % 0.4 Nucleated Red Blood Cells % 0.0 Immature Granulocytes # 0.020 Neutrophils # 2.9 Lymphocytes # 0.9 Monocytes # 0.6 Eosinophils # 0.1 Basophils # 0.0 Nucleated Red Blood Cells # 0.0 Sodium Level 143 Potassium Level 3.8 Chloride Level 106 Carbon Dioxide Level 29 Anion Gap 8 Blood Urea Nitrogen 17 Creatinine 0.72 Est Glomerular Filtrat Rate mL/min > 60 Glucose Level 136 Calcium Level 8.6 Troponin I < 0.012 HPI/ROS Admit Date/Time Admit Date/Time September 05, 2018 at 19:52 Hx of Present Illness This is a 53-year-old male with no significant past medical history who was sent by his PCP for chest pain. Chest pain is left-sided and has been going on for a few days. Denied significant shortness of breath, nausea/vomiting or diaphoresis. When he presented to the ER, EKG shows diffuse T wave inversion, no ST elevation or depression. First troponin is negative. PMH/Family/Social Past Medical History Medical History: other (See HPI) Past Surgical History Past Surgical Hx: other (See HPI) Family History Significant Family History: no pertinent family hx Social History Alcohol Use: none Smoking Status: Never smoker Drug Use: none Exam Constitutional: no acute distress Head: normocephalic, atraumatic Eyes: EOMI, PERRL Respiratory: clear to auscultation, normal air movement Cardiovascular: regular rate and rhythm, nl pulses Gastrointestinal: soft, non-tender Extremities: normal pulses Medications Current Medications Nitroglycerin (Nitroglycerin (Sl Tab) 0.4 Mg) 1 tab Q5M UP TO 3 DOSES PRN SL .CHEST PAIN Last administered on 09/05/18at 18:45; Admin Dose 1 TAB; Start 09/05/18 at 18:30 Ondansetron HCl (Zofran Inj) 4 mg ER BRIDGE PRN IV NAUSEA/VOMITING; Start 09/05/18 at 20:00; Stop 09/06/18 at 19:59 Acetaminophen (Tylenol Tab) 650 mg ER BRIDGE PRN PO .MILD PAIN 1-3 OR TEMP; Start 09/05/18 at 20:00; Stop 09/06/18 at 19:59 Coded Allergies: Penicillins (Verified Allergy, Unknown, 01/20/18) Social History Smoking Status: Never smoker Exam/Review of Systems Vital Signs Vitals Vital Signs Date Temp Pulse Resp B/P (MAP) Pulse Ox O2 O2 Flow FiO2 Time Delivery Rate 09/05/18 52 23:09 09/05/18 18 135/92 100 Room Air 22:35 (106) 09/05/18 99.1 21:56 OBNNY MELENDEZ MD September 05, 2018 23:24
[2018-09-05] MEDS ORDERED: NACL 0.9% 3 ML SYG IV SCH (23:30)
[2018-09-05] MEDS ORDERED: GUAIFENESIN 20 MG/ML 5ML CUP PO PRN (23:30)
[2018-09-05] MEDS ORDERED: ACETAMINOPHEN 500 MG TAB PO PRN (23:30)
[2018-09-05] MEDS ORDERED: ALBUTEROL/IPRATROPIUM (NEB) 3 ML AMP HHN PRN (23:30)
[2018-09-05] MEDS ORDERED: IBUPROFEN 600 MG TAB PO PRN (23:30)
[2018-09-05] MEDS ORDERED: HYDROCODONE/APAP (5/325) TAB PO PRN (23:30)
[2018-09-06] VITALS (12 sets, daily range): BP systolic 124–143; BP diastolic 59–78; PULSE 53–79; RESP 18–19
[2018-09-06] MEDS: ASPIRIN 81 MG TAB PO SCH (08:31)
[2018-09-06] MEDS: LORATADINE 10 MG TAB PO SCH (08:32)
[2018-09-06] MEDS: HYDROCHLOROTHIAZIDE 25 MG TAB PO SCH (08:32)
[2018-09-06] MEDS: HEPARIN 5,000 UNIT/1 ML VIAL SC SCH ×2 (08:40→20:43)
[2018-09-06] MEDS: BACITRACIN 0.5%/ZINC 28.35 GM OINT TOP SCH ×2 (09:00→21:00)
[2018-09-06] MEDS ORDERED: BACITRACIN 0.5%/ZINC 28.35 GM OINT TOP SCH (09:00)
--- NOTE | 2018-09-06 13:50 | PN ---
Date/Time of Note Date/Time of Note DATE: 09/06/18 TIME: 13:48 Assessment/Plan VTE Prophylaxis Risk score (from Nsg)>0 risk: 1 SCD applied (from Nsg): Yes Pharmacological prophylaxis: other Lines/Catheters IV Catheter Type (from Nrsg): Saline Lock Assessment/Plan Hospital Course S: Patient denies chest pain presently. O: VS- see below PE: Const: Lying in bed, no acute distress Head: Atraumatic Eyes: Normal Conjunctiva ENT: Normal External Ears, Nose and Mouth. Neck: Full range of motion. No meningismus. Resp: Clear to auscultation bilaterally Cardio: Regular rate and rhythm, no murmurs Abd: Soft, non tender, non distended. Normal bowel sounds Ext: No cyanosis, or edema Neuro: No focal deficits Assessment/Plan: 53-year-old male with no significant past medical history presents with chest pain with EKG showing diffuse T wave inversion, first troponin is negative. Need to rule out ACS. PLAN -Continue telemetry monitoring,-Aspirin, as needed nitro -Serial troponin x 3 are negative, but given the EKG findings we will go ahead and consult cardiology team -Consider beta-esperanza if heart rate allows -Follow-up results/recommendations of 2D echo and cardiology consult Result Diagram: 09/06/18 0610 09/06/18 0610 Results 24hrs Laboratory Tests Test 09/05/18 18:31 09/06/18 01:01 09/06/18 06:10 White Blood Count 4.5 L 5.9 # Red Blood Count 4.92 4.58 L Hemoglobin 14.2 13.2 L Hematocrit 42.0 39.0 L Mean Corpuscular Volume 85.4 85.2 Mean Corpuscular Hemoglobin 28.9 L 28.8 L Mean Corpuscular Hemoglobin Concent 33.8 33.8 Red Cell Distribution Width 11.9 12.0 Platelet Count 221 191 Mean Platelet Volume 9.0 9.2 Immature Granulocytes % 0.400 0.200 Neutrophils % 63.5 68.5 Lymphocytes % 19.9 17.7 Monocytes % 13.2 H 11.1 H Eosinophils % 2.6 2.2 Basophils % 0.4 0.3 Nucleated Red Blood Cells % 0.0 0.0 Immature Granulocytes # 0.020 0.010 Neutrophils # 2.9 4.0 Lymphocytes # 0.9 1.0 Monocytes # 0.6 0.7 Eosinophils # 0.1 0.1 Basophils # 0.0 0.0 Nucleated Red Blood Cells # 0.0 0.0 Sodium Level 143 142 Potassium Level 3.8 3.8 Chloride Level 106 108 Carbon Dioxide Level 29 28 Anion Gap 8 6 Blood Urea Nitrogen 17 20 Creatinine 0.72 0.61 Est Glomerular Filtrat Rate mL/min > 60 > 60 Glucose Level 136 100 Calcium Level 8.6 8.3 L Troponin I < 0.012 < 0.012 < 0.012 Creatine Kinase 132 114 Creatine Kinase Index 2.1 2.2 Creatinine Kinase MB (Mass) 2.81 H 2.48 H Hemoglobin A1c 5.2 Magnesium Level 2.1 Total Bilirubin 0.7 Direct Bilirubin 0.00 Indirect Bilirubin 0.7 Aspartate Amino Transf (AST/SGOT) 29 Alanine Aminotransferase (ALT/SGPT) 33 Alkaline Phosphatase 84 Total Protein 6.2 Albumin 3.5 Globulin 2.70 Albumin/Globulin Ratio 1.29 Triglycerides Level 98 Cholesterol Level 160 LDL Cholesterol, Calculated 98 HDL Cholesterol 42 Cholesterol/HDL Ratio 3.8 Thyroid Stimulating Hormone (TSH) 2.790 Exam/Review of Systems Exam Vitals Vital Signs Date Temp Pulse Resp B/P (MAP) Pulse Ox O2 O2 Flow FiO2 Time Delivery Rate 09/06/18 98.0 79 18 124/72 96 11:32 (89) 09/06/18 Nasal 04:48 Cannula 09/06/18 2.0 01:26 Intake and Output 09/05/18 09/05/18 09/06/18 1515:00 23:00 07:00 IntakeIntake Total 450 ml BalanceBalance 450 ml Results Results 24hrs Laboratory Tests Test 09/05/18 18:31 09/06/18 01:01 09/06/18 06:10 White Blood Count 4.5 L 5.9 # Red Blood Count 4.92 4.58 L Hemoglobin 14.2 13.2 L Hematocrit 42.0 39.0 L Mean Corpuscular Volume 85.4 85.2 Mean Corpuscular Hemoglobin 28.9 L 28.8 L Mean Corpuscular Hemoglobin Concent 33.8 33.8 Red Cell Distribution Width 11.9 12.0 Platelet Count 221 191 Mean Platelet Volume 9.0 9.2 Immature Granulocytes % 0.400 0.200 Neutrophils % 63.5 68.5 Lymphocytes % 19.9 17.7 Monocytes % 13.2 H 11.1 H Eosinophils % 2.6 2.2 Basophils % 0.4 0.3 Nucleated Red Blood Cells % 0.0 0.0 Immature Granulocytes # 0.020 0.010 Neutrophils # 2.9 4.0 Lymphocytes # 0.9 1.0 Monocytes # 0.6 0.7 Eosinophils # 0.1 0.1 Basophils # 0.0 0.0 Nucleated Red Blood Cells # 0.0 0.0 Sodium Level 143 142 Potassium Level 3.8 3.8 Chloride Level 106 108 Carbon Dioxide Level 29 28 Anion Gap 8 6 Blood Urea Nitrogen 17 20 Creatinine 0.72 0.61 Est Glomerular Filtrat Rate mL/min > 60 > 60 Glucose Level 136 100 Calcium Level 8.6 8.3 L Troponin I < 0.012 < 0.012 < 0.012 Creatine Kinase 132 114 Creatine Kinase Index 2.1 2.2 Creatinine Kinase MB (Mass) 2.81 H 2.48 H Hemoglobin A1c 5.2 Magnesium Level 2.1 Total Bilirubin 0.7 Direct Bilirubin 0.00 Indirect Bilirubin 0.7 Aspartate Amino Transf (AST/SGOT) 29 Alanine Aminotransferase (ALT/SGPT) 33 Alkaline Phosphatase 84 Total Protein 6.2 Albumin 3.5 Globulin 2.70 Albumin/Globulin Ratio 1.29 Triglycerides Level 98 Cholesterol Level 160 LDL Cholesterol, Calculated 98 HDL Cholesterol 42 Cholesterol/HDL Ratio 3.8 Thyroid Stimulating Hormone (TSH) 2.790 Medications Medication Current Medications Ondansetron HCl (Zofran Inj) 4 mg ER BRIDGE PRN IV NAUSEA/VOMITING; Start 09/05/18 at 20:00; Stop 09/06/18 at 19:59 Acetaminophen (Tylenol Tab) 650 mg ER BRIDGE PRN PO .MILD PAIN 1-3 OR TEMP; Start 09/05/18 at 20:00; Stop 09/06/18 at 19:59 IV Flush (NS 3 ml) 3 ml PER PROTOCOL IV ; Start 09/05/18 at 23:30 Ondansetron HCl (Zofran Inj) 4 mg Q6H PRN IV NAUSEA/VOMITING; Start 09/05/18 at 23:30 Aspirin (Aspirin) 81 mg DAILY PO Last administered on 09/06/18at 08:31; Admin Dose 81 MG; Start 09/06/18 at 09:00 Nitroglycerin (Nitroglycerin (Sl Tab) 0.4 Mg) 1 tab Q5M PRN SL .CHEST PAIN; Start 09/05/18 at 23:30 Heparin Sodium (Porcine) (Heparin (5000 Units/1ml)) 5,000 unit Q12 SC Last administered on 09/06/18at 08:40; Admin Dose 5,000 UNIT; Start 09/06/18 at 09:00 Albuterol/ Ipratropium (Duoneb) 3 ml Q2H RESP THERAPY PRN HHN SHORTNESS OF MAR[place] ANTONIO ATH; Start 09/05/18 at 23:30 Acetaminophen (Tylenol Tab) 650 mg Q6H PRN PO MILD PAIN(1-5)OR ELEVATED TEMP; Start 09/05/18 at 23:30 Guaifenesin (Robitussin Liquid Cup) 200 mg Q4H PRN PO COUGH; Start 09/05/18 at 23:30 Hydrochlorothiazide (Hydrochlorothiazide) 25 mg DAILY PO Last administered on 09/06/18at 08:32; Admin Dose 25 MG; Start 09/06/18 at 09:00 Acetaminophen/ Hydrocodone Bitart (Byars (5/325)) 1 tab Q6H PRN PO SEVERE PAIN LEVEL 7-10; Start 09/05/18 at 23:30 Ibuprofen (Motrin) 600 mg Q6H PRN PO MILD PAIN(1-3)OR ELEVATED TEMP; Start 09/05/18 at 23:30 Loratadine (Claritin) 10 mg DAILY PO Last administered on 09/06/18at 08:32; Admin Dose 10 MG; Start 09/06/18 at 09:00 Bacitracin (Bacitracin 0.5%/ Zinc Oint) 1 applic BID TOP ; Start 09/06/18 at 09:00 ISABELL RANGEL September 06, 2018 13:50
--- NOTE | 2018-09-06 22:47 | CONS ---
DATE OF ADMISSION: 09/05/2018 DATE OF CONSULTATION: 09/06/2018 REASON FOR CONSULTATION: Chest pain, assess for acute coronary syndrome. REQUESTING PHYSICIAN: Silvestre Sal MD HISTORY OF PRESENT ILLNESS: Mr. Day is a very pleasant 53-year-old Chinese- speaking male without significant past medical history who presented with complaints of substernal chest pain, left-sided, described as a pressure-like sensation, occurring at rest, radiation to both shoulders. The patient had presented to his primary care physician and was found to have abnormal echocardiogram was therefore sent to the emergency department. Upon arrival in the emergency department, temperature 99.1, blood pressure 156/90, pulse 69, respirations 16, satting 98%. The patient's labs were notable for white cell count 4.5, hemoglobin 14.2, platelet count 221. A sodium 142, potassium 3.8, creatinine 0.7, BUN 17. Troponin negative. LDL 98, HDL 42. The patient underwent a chest x-ray revealing bilateral perihilar interstitial opacities, may represent mild pulmonary edema or infection. The patient's electrocardiogram revealed normal sinus bradycardia, rate 58 with T-wave inversions diffusely, inferior lateral. The patient had serial EKGs done without significant changes, and even the EKG appears to be from the patient's primary care office is the same. The patient has been admitted to the floor and since admit to floor has had negative troponins x3. The patient denies ongoing chest pain at this time. PAST MEDICAL HISTORY: As above in HPI. MEDICATIONS IN HOSPITAL: 1. Aspirin 81 mg daily. 2. Heparin 5000 subcutaneous q.12. 3. Hydrochlorothiazide 25 mg daily. 4. Claritin 10 mg daily. 5. Bacitracin. 6. Zofran. 8. DuoNeb. 9. Tylenol. 10. Robitussin. 11. Millry. 12. Ibuprofen. ALLERGIES: PENICILLIN. SOCIAL HISTORY: No current tobacco, social EtOH, no illicit drug use. FAMILY HISTORY: No sudden cardiac or early CAD. REVIEW OF SYSTEMS: As above in HPI. CONSTITUTIONAL: No fevers, chills. PULMONARY: No current shortness of breath. CARDIOVASCULAR: Intermittent chest pain. GASTROINTESTINAL: No vomiting. GENITOURINARY: No hematuria. MUSCULOSKELETAL: Degenerative joint disease. PSYCHIATRIC: The patient denies depression. NEUROLOGIC: No documented history of CVA. PHYSICAL EXAMINATION: VITAL SIGNS: Temperature of 99.1, blood pressure most recently of 124/72, pulse 70, respiratory rate 18, satting 96%. GENERAL: The patient is alert, awake, no acute distress. NECK: JVP approximately 8 to 9 cm of water. CHEST: Fair air movement throughout. HEART: Regular rate and rhythm. Normal S1, S2, I/ systolic murmur, nondisplaced PMI. ABDOMEN: Positive bowel sounds, soft. EXTREMITIES: Reveal no edema, 1+ pulses bilateral posterior tibial. LABORATORY DATA: On most recent from today, sodium 142, potassium 3.8, creatinine 0.6, BUN 20. Troponin negative x3. LDL 90, HDL 42. White blood cell count 5.9, hemoglobin 13.2, platelet count of 191. IMAGING STUDIES: As above in HPI. No further imaging studies for my review at this time. ECG: As above in HPI. No further electrocardiograms for my review at this time. IMPRESSION: 1. Chest pain, assess for acute coronary syndrome, negative troponins x3 at this time. 2. Abnormal echocardiogram with diffuse T-wave inversions, inferior and laterally. 3. Hypertension, borderline, and currently reasonable. 4. Intermittent bradycardia. RECOMMENDATIONS: 1. At this time, would maintain patient on telemetry monitoring to follow rhythm and rate closely. 2. Would send 1 additional troponin to assure the patient's chest pain was not due to acute coronary syndrome, acute myocardial infarction. 3. We will continue serial EKGs to assess for ongoing changes. 4. We will continue EKG in the morning, EKG for any complaints of chest pain or change in rhythm. 5. We will follow patient's 2D echo for assessment of ejection fraction, wall motion and major abnormalities. 6. Continue the patient's current aspirin for prophylaxis against cardiovascular events. 7. Continue the patient's current hydrochlorothiazide at this time for control of blood pressure. 8. We will give patient sublingual nitroglycerin for recurrent episodes of chest pain.. We will follow patient's 2D echo and we will place the patient in for a Lexiscan cardiac stress test to take place in the morning when this patient's troponin comes back positive on last draw. Thank you for allowing me to take part in the care of this patient. I will continue to follow him closely with you, with recommendations to be made as the patient progresses through his inpatient hospital clinical course. Dictated By: DENIS SMITH/SAMUEL Conf#: [id number] DID#: [id number]
[2018-09-07] VITALS (13 sets, daily range): BP systolic 123–136; BP diastolic 62–86; PULSE 39–75; RESP 18–20
[2018-09-07] MEDS: LORATADINE 10 MG TAB PO SCH (08:25)
[2018-09-07] MEDS: HYDROCHLOROTHIAZIDE 25 MG TAB PO SCH (08:25)
[2018-09-07] MEDS: ASPIRIN 81 MG TAB PO SCH (08:26)
[2018-09-07] MEDS: HEPARIN 5,000 UNIT/1 ML VIAL SC SCH ×2 (08:29→21:22)
[2018-09-07] MEDS: BACITRACIN 0.5%/ZINC 28.35 GM OINT TOP SCH ×2 (08:30→21:00)
--- NOTE | 2018-09-07 11:39 | PN ---
Date/Time of Note Date/Time of Note DATE: 09/07/18 TIME: 11:39 Assessment/Plan VTE Prophylaxis Risk score (from Nsg)>0 risk: 1 SCD applied (from Nsg): Yes Pharmacological prophylaxis: other Lines/Catheters IV Catheter Type (from Nrsg): Sal[place] Lock Assessment/Plan Hospital Course S: Patient had no acute events overnight, awaiting cardiac stress test for later today, seen by cardiology team yesterday. O: VS- see below PE: Const: Lying in bed, no acute distress Head: Atraumatic Eyes: Normal Conjunctiva ENT: Normal External Ears, Nose and Mouth. Neck: Full range of motion. No meningismus. Resp: Clear to auscultation bilaterally Cardio: Regular rate and rhythm, no murmurs Abd: Soft, non tender, non distended. Normal bowel sounds Ext: No cyanosis, or edema Neuro: No focal deficits Assessment/Plan: 53-year-old male with no significant past medical history pre sents with chest pain with EKG showing diffuse T wave inversion, first troponin is negative. Need to rule out ACS. PLAN -Continue telemetry monitoring,-Aspirin, as needed nitro -Serial troponin x 3 are negative, but given the EKG findings cardiology team is recommending stress test, follow-up results of this -Consider beta-esperanza if heart rate allows -Follow-up further results/recommendations of 2D echo and cardiology consult Result Diagram: 09/06/18 0610 09/06/18 0610 Results 24hrs Laboratory Tests Test 09/06/18 16:28 Troponin I < 0.012 Exam/Review of Systems Exam Vitals Vital Signs Date Temp Pulse Resp B/P (MAP) Pulse Ox O2 O2 Flow FiO2 Time Delivery Rate 09/07/18 Nasal 2.0 09:30 Cannula 09/07/18 56 08:26 09/07/18 97.2 20 136/86 99 07:42 (103) 09/07/18 27 02:02 Intake and Output 09/06/18 09/06/18 09/07/18 1515:00 23:00 07:00 IntakeIntake Total 800 ml 600 ml BalanceBalance 800 ml 600 ml Results Results 24hrs Laboratory Tests Test 09/06/18 16:28 Troponin I < 0.012 Medications Medication Current Medications IV Flush (NS 3 ml) 3 ml PER PROTOCOL IV ; Start 09/05/18 at 23:30 Ondansetron HCl (Zofran Inj) 4 mg Q6H PRN IV NAUSEA/VOMITING; Start 09/05/18 at 23:30 Aspirin (Aspirin) 81 mg DAILY PO Last administered on 09/07/18at 08:26; Admin Dose 81 MG; Start 09/06/18 at 09:00 Nitroglycerin (Nitroglycerin (Sl Tab) 0.4 Mg) 1 tab Q5M PRN SL .CHEST PAIN; Start 09/05/18 at 23:30 Heparin Sodium (Porcine) (Heparin (5000 Units/1ml)) 5,000 unit Q12 SC Last adm inistered on 09/07/18at 08:29; Admin Dose 5,000 UNIT; Start 09/06/18 at 09:00 Albuterol/ Ipratropium (Duoneb) 3 ml Q2H RESP THERAPY PRN HHN SHORTNESS OF BREATH; Start 09/05/18 at 23:30 Acetaminophen (Tylenol Tab) 650 mg Q6H PRN PO MILD PAIN(1-5)OR ELEVATED TEMP; Start 09/05/18 at 23:30 Guaifenesin (Robitussin Liquid Cup) 200 mg Q4H PRN PO COUGH; Start 09/05/18 at 23:30 Hydrochlorothiazide (Hydrochlorothiazide) 25 mg DAILY PO Last administered on 09/07/18at 08:25; Admin Dose 25 MG; Start 09/06/18 at 09:00 Acetaminophen/ Hydrocodone Bitart ([place] (5/325)) 1 tab Q6H PRN PO SEVERE PAIN LEVEL 7-10; Start 09/05/18 at 23:30 Ibuprofen (Motrin) 600 mg Q6H PRN PO MILD PAIN(1-3)OR ELEVATED TEMP; Start 09/05/18 at 23:30 Loratadine (Claritin) 10 mg DAILY PO Last administered on 09/07/18at 08:25; Ad min Dose 10 MG; Start 09/06/18 at 09:00 Bacitracin (Bacitracin 0.5%/ Zinc Oint) 1 applic BID TOP ; Start 09/06/18 at 09:00 ISABELL RANGEL September 07, 2018 11:39
[2018-09-07] MEDS ORDERED: REGADENOSON 0.4 MG/5 ML SYG ONE (11:55)
--- NOTE | 2018-09-07 12:23 | CONS ---
Assessment/Plan Assessment/Plan Hospital Course (Demo Recall) IMPRESSION: 1. Chest pain, assess for acute coronary syndrome, negative troponins x3 at this time. 2. Abnormal echocardiogram with diffuse T-wave inversions, inferior and laterally. 3. Hypertension, borderline, and currently reasonable. 4. Intermittent bradycardia.-documented to 40 o/n, stable BP, NL TSH Recc: -Tele -serial ecg's -Continue asa/HCTZ -will f/u echo -lexiscan stress test today Consultation Date/Type/Reason Admit Date/Time September 05, 2018 at 19:52 Initial Consult Date 09/06/18 Type of Consult Cardiology Reason for Consultation chest pain/bradycardia Requesting Provider: LEON FLORES NP Date/Time of Note DATE: 09/07/18 TIME: 12:21 Exam/Review of Systems Vital Signs Vitals Vital Signs Date Temp Pulse Resp B/P (MAP) Pulse Ox O2 O2 Flow FiO2 Time Delivery Rate 09/07/18 Nasal 2.0 09:30 Cannula 09/07/18 56 08:26 09/07/18 97.2 20 136/86 99 07:42 (103) 09/07/18 27 02:02 Intake and Output 09/06/18 09/06/18 09/07/18 1515:00 23:00 07:00 IntakeIntake Total 800 ml 600 ml BalanceBalance 800 ml 600 ml Exam Exam Review of Systems: CONSTITUTIONAL: No fevers, chills. PULMONARY: No sob CARDIOVASCULAR: No current chest pain/palpitations GASTROINTESTINAL: No nausea/vomiting. GENITOURINARY: No hematuria/dysuria. MUSCULOSKELETAL: No myagias/arthalgias. PSYCHIATRIC: The patient denies depression. NEUROLOGIC: No weakness Constitutional: alert, oriented Psych: no complaints Head: normocephalic ENMT: mucosa pink and moist Neck: supple, jvd (8 cm water) Respiratory: clear to auscultation Cardiovascular: regular rate and rhythm Gastrointestinal: soft, non-tender Musculoskeletal: muscle tone (normal) Extremities: edema (none) Neurological: other (No focal deficits) Labs Result Diagram: 09/06/18 0610 09/06/18 0610 Results 24hrs Laboratory Tests Test 09/06/18 16:28 Troponin I < 0.012 Medications Medications Current Medications IV Flush (NS 3 ml) 3 ml PER PROTOCOL IV ; Start 09/05/18 at 23:30 Ondansetron HCl (Zofran Inj) 4 mg Q6H PRN IV NAUSEA/VOMITING; Start 09/05/18 at 23:30 Aspirin (Aspirin) 81 mg DAILY PO Last administered on 09/07/18at 08:26; Admin Dose 81 MG; Start 09/06/18 at 09:00 Nitroglycerin (Nitroglycerin (Sl Tab) 0.4 Mg) 1 tab Q5M PRN SL .CHEST PAIN; Start 09/05/18 at 23:30 Heparin Sodium (Porcine) (Heparin (5000 Units/1ml)) 5,000 unit Q12 SC Last administered on 09/07/18at 08:29; Admin Dose 5,000 UNIT; Start 09/06/18 at 09:00 Albuterol/ Ipratropium (Duoneb) 3 ml Q2H RESP THERAPY PRN HHN SHORTNESS OF BREATH; Start 09/05/18 at 23:30 Acetaminophen (Tylenol Tab) 650 mg Q6H PRN PO MILD PAIN(1-5)OR ELEVATED TEMP; Start 09/05/18 at 23:30 Guaifenesin (Robitussin Liquid Cup) 200 mg Q4H PRN PO COUGH; Start 09/05/18 at 23:30 Hydrochlorothiazide (Hydrochlorothiazide) 25 mg DAILY PO Last administered on 09/07/18at 08:25; Admin Dose 25 MG; Start 09/06/18 at 09:00 Acetaminophen/ Hydrocodone Bitart ([place] (5/325)) 1 tab Q6H PRN PO SEVERE PAIN LEVEL 7-10; Start 09/05/18 at 23:30 Ibuprofen (Motrin) 600 mg Q6H PRN PO MILD PAIN(1-3)OR ELEVATED TEMP; Start 09/05/18 at 23:30 Loratadine (Claritin) 10 mg DAILY PO Last administered on 09/07/18at 08:25; Admin Dose 10 MG; Start 09/06/18 at 09:00 Bacitracin (Bacitracin 0.5%/ Zinc Oint) 1 applic BID TOP ; Start 09/06/18 at 09:00 DENIS DOMINGUEZ September 07, 2018 12:23
--- NOTE | 2018-09-07 15:56 | CARRPT ---
DATE OF PROCEDURE: 09/07/2018 TYPE OF PROCEDURE: Lexiscan Cardiolite stress test, electrocardiogram portion. REASON FOR STRESS TESTING: Chest pain, assess for ischemia. BASELINE VITAL SIGNS AND ELECTROCARDIOGRAM: Pulse 53, blood pressure 128/74. Electrocardiogram reve als sinus bradycardia, rate of 53, normal axis, normal intervals with lateral T-wave inversions, infe rior Q's and J-point elevation with normal concavity. PROCEDURE IN DETAILS: The patient underwent standard Lexiscan infusion protocol over 10 seconds foll owed by radiolabeled tracer. The patient's test was stopped due to completion of protocol. Maximal achieved blood pressure during the test was 119/72. Maximum heart rate during the test was 82. ELECTROCARDIOGRAM FINDINGS: The patient did not develop any new Lexiscan-induced ST or T-wave change s from baseline abnormalities. No documented PVCs. SYMPTOMS: The patient had no complaints of chest pain or shortness of breath during stress testing. IMPRESSION: 1. No Lexiscan-induced ST or T-wave changes from baseline abnormalities diagnostic of cardiac ischem ia. 2. No complaints of chest pain or shortness of breath during stress testing. 3. No documented premature ventricular contractions during stress testing. 4. Report of nuclear images to follow in separate dictation. Dictated By: DENIS SMITH/SAMUEL Conf#: [id number] DID#: [id number] CC: ISABELL RANGEL; BONNY MELENDEZ MD;*End*
--- NOTE | 2018-09-07 19:28 | RADRPT ---
Vent Rate: 54 bpm RR Interval: 1112 msec MO Interval: 136 msec QRS Duration: 95 msec QT Interval: 419 msec QTC Interval: 397 msec P-R-T [place]: 59 - 37 - -89 degrees Sinus rhythm...normal P axis, V-rate 50- 99 Abnormal T, probable ischemia, widespread...T <-0.50mV, ant/lat/inf Borderline ST elevation, anterior leads...ST >0.15mV in V1-V4 Electronically Signed By: Deonte Marquis
[2018-09-08] VITALS: PULSE 56
[2018-09-08 04:00] VITALS: PULSE 59
[2018-09-08 04:35] VITALS: BP 115/73; PULSE 63; RESP 20
[2018-09-08 07:15] VITALS: BP 144/92; PULSE 68; RESP 20
[2018-09-08 08:00] VITALS: PULSE 70
[2018-09-08] MEDS: HYDROCHLOROTHIAZIDE 25 MG TAB PO SCH (08:54)
[2018-09-08] MEDS: ASPIRIN 81 MG TAB PO SCH (08:55)
[2018-09-08] MEDS: LORATADINE 10 MG TAB PO SCH (08:55)
[2018-09-08] MEDS: HEPARIN 5,000 UNIT/1 ML VIAL SC SCH (08:59)
[2018-09-08] MEDS ORDERED: ASPI-831 PO (09:34)
--- NOTE | 2018-09-08 09:34 | PDOCDIS ---
Discharge Instructions CONDITION [id number] Patient Condition: [id number] Stable HOME CARE INSTRUCTIONS: [id number] Diet Instructions: [id number] Low Fat /Cholesterol ACTIVITY: [id number] Activity Restrictions: [id number] Slowly Increase Activity Rest between Activity Avoid heavy lifting FOLLOW UP/APPOINTMENTS Follow-up Plan Please take your medications as prescribed, see your doctor in the clinic in the next 1 week. ISABELL RANGEL September 08, 2018 09:34
--- NOTE | 2018-09-08 09:41 | DS ---
Date/Time of Note Date/Time of Note DATE: 09/08/18 TIME: 09:35 Discharge Summary Admission/Discharge Info Admit Date/Time September 05, 2018 at 19:52 Discharge Date/Time Discharge Diagnosis Chest pain: Ruled out for ACS, negative results on the nuclear cardiac stress test for abnormalities Patient Condition: Stable Procedures Nuclear cardiac stress test: IMPRESSION: 1. No Lexiscan-induced ST or T-wave changes from baseline abnormalities diagnostic of cardiac ischemia. 2. No complaints of chest pain or shortness of breath during stress testing. 3. No documented premature ventricular contractions during stress testing. 4. Report of nuclear images to follow in separate dictation. Hx of Present Illness 53-year-old male with no significant past medical history who was sent by his PCP for chest pain. Chest pain is left-sided and has been going on for a few days. Denied significant shortness of breath, nausea/vomiting or diaphoresis. When he presented to the ER, EKG shows diffuse T wave inversion, no ST elevation or depression. First troponin is negative. Hospital Course Patient was admitted to telemetry floor. He was seen by cardiology team. He ruled out for acute coronary syndrome. His A1c and lipid panel were within normal limits. Blood pressure was stable. Patient was able to ambulate, tolerated p.o. diet. He underwent nuclear cardiac stress test with no acute abnormalities found. After getting clearance from cardiology team, patient will be discharged home today in improved condition. See below for full list of discharge medications. Home Meds Active Scripts Aspirin (Aspirin) 81 Mg Chew, 81 MG PO DAILY, #30 TAB 2 Refills Prov:ISABELL RANGEL 09/08/18 Loratadine* (Claritin*) 10 Mg Capsule, 10 MG PO DAILY, #15 CAP Prov:BONNY BRITO PA-C 01/20/18 Acetaminophen* (Tylophen*) 500 Mg Capsule, 1 CAP PO Q6H PRN for PAIN AND OR ELEVATED TEMP, #30 CAP Prov:MATILDA FUNEZ PA-C 12/07/17 Cephalexin* (Keflex*) 500 Mg Capsule, 500 MG PO QID for 7 Days, CAP Prov:MATILDA FUNEZ PA-C 12/07/17 Hydrocodone/Acetaminophen ([place] 5-325 Tablet) 1 Each Tablet, 1 TAB PO Q6H PRN for SEVERE PAIN LEVEL 7-10, #20 TAB Prov:MANSI MENDOZA HYPERBARIC TECHNICIAN 11/20/17 Ibuprofen* (Motrin*) 600 Mg Tab, 600 MG PO Q6H PRN for PAIN AND OR ELEVATED TEMP, #30 TAB Prov:MANSI MENDOZA. HYPERBARIC TECHNICIAN 11/20/17 Hydrochlorothiazide* (Hydrochlorothiazide*) 25 Mg Tab, 25 MG PO DAILY, #15 TAB Prov:FADY WEAVER PA-C 02/16/17 Clobetasol Propionate* (Clobetasol Propionate*) 60 Gm Cream.gm., 1 APPLIC TOP BID, #1 TUB Prov:JOSIAH MCKEE HYPERBARIC TECHNICIAN 07/02/16 Guaifenesin* (Robitussin*) 100 Mg/5 Ml Syrup, 200 MG PO Q4H PRN for COUGH, #120 ML Prov:KARISHMA MORA HYPERBARIC TECHNICIAN 05/03/16 Ibuprofen* (Motrin*) 600 Mg Tab, 600 MG PO Q6H PRN for PAIN AND OR ELEVATED TEMP, #30 TAB Prov:KARISHMA MORA HYPERBARIC TECHNICIAN 05/03/16 Bacitracin* (Bacitracin Zinc Oint*) 28.35 Gm Oint, 1 APPLIC TOP BID, #1 TUB APPLI TO Prov:FADY WEAEVR PA-C 06/21/15 Sulfamethoxazole-Trimethoprim* (Bactrim* DS) 800-160 Mg Tab, 1 TAB PO BID for 5 Days, TAB Prov:FADY WEAVER PA-C 06/21/15 Follow-up Plan Please take your medications as prescribed, see your doctor in the clinic in the next 1 week. Primary Care Provider [facility] Time spent on discharge: > 30 minutes ISABELL RANGEL September 08, 2018 09:41
--- NOTE | 2018-09-08 13:42 | RADRPT ---
Echocardiogram Report Patient Name: Ancelmo REESE ID: [id number] : 1965 (53y 4m)Study Date: 09/08/2018 9:20:06 AM Gender: Callumcession #: [id number] Tech: LE Location: [facility] Ref.Physician: BONNY MELENDEZ Height(Cm): BSA: Weight(Kg): Quality: GoodOrder Physician: BONNY MELENDEZ Account #: Procedures: Echocardiographic Report: Transthoracic echocardiogram with complete 2D, M-Mode, and doppler examination. Indications: SVT. Measurements: 2D/M Mode Doppler Measurement Value Normal Range Measurement Value Normal Range LVIDd 2D 5.5 [ 4.2 - 5.8 ] cm AV Mean Hernandez 0.9 [ 70.0 - 90.0 ] cm/sec LVIDs 2D 3.7 [ 2.5 - 4.0 ] cm AV Mean PG 4.0 [ 2.0 - 4.0 ] mmHg LVPWd 2D 1.1 [ 0.6 - 1.0 ] cm AV Peak Hernandez 1.2 [ 100.0 - 170.0 ] cm/sec IVSd 2D 1.1 [ 0.6 - 1.0 ] cm AV Peak PG 6.0 [ 2.0 - 9.0 ] mmHg EDV 2D 149.0 [ 62.0 - 150.0 ] ml AV VTI 23.0 cm ESV 2D 59.3 [ 21.0 - 61.0 ] ml LVOT Peak Hernandez 0.9 [ 70.0 - 110.0 ] cm/sec EF 2D 60.2 [ 52.0 - 72.0 ] percent LVOT Peak PG 3.0 [ 2.0 - 6.0 ] mmHg LVOT Diam 2.1 [ 2.3 - 2.9 ] cm MV E Peak Hernandez 0.5 [ 60.0 - 130.0 ] cm/sec MV A Peak Hernandez 0.6 [ 100.0 - 120.0 ] cm/sec MV E/A 0.8 [ 0.8 - 1.5 ] ratio MV Decel Time 225 [ 104 - 258 ] msec Lat E` Hernandez 0.1 [ 10.0 - 15.0 ] cm/sec Lateral E/E` 7.2 [ 1.0 - 2.0 ] ratio Med E` Hernandez 0.0 cm/sec MV E/A 0.8 [ 0.8 - 1.5 ] ratio TR Peak Hernandez 2.3 [ 100.0 - 280.0 ] cm/sec TR Peak PG 22.0 mmHg PV Peak Hernandez 0.7 [ 40.0 - 80.0 ] cm/sec PV Peak PG 2.0 mmHg Findings: Left Ventricle: Normal left ventricular systolic function. Normal left ventricular cavity size. Normal left ventricular wall thickness. Ejection fraction is visually estimated at 55-60 %. Tissue Doppler/Mitral Doppler indices are consistent with impaired relaxation (Stage I diastolic dysfunction). Right Ventricle: Normal right ventricular size. Normal right ventricular systolic function. Left Atrium: The left atrium is normal in size. Right Atrium: The right atrium is normal in size. Mitral Valve: Normal appearance of the mitral valve. Trace mitral regurgitation. Aortic Valve: Normal appearance of the aortic valve. No significant aortic stenosis or insufficiency. Tricuspid Valve: Normal appearance of the tricuspid valve. The estimated Peak RVSP is 25 mmHg. There is trace tricuspid regurgitation. Pulmonic Valve: There is trace pulmonic regurgitation. Pericardium: Normal pericardium with no significant pericardial effusion. Aorta: Normal aortic root. IVC: Normal size and normal respiratory collapse consistent with normal right atrial pressure. Conclusions: Normal left ventricular systolic function. Normal left ventricular cavity size. Normal left ventricular wall thickness. Ejection fraction is visually estimated at 55-60 %. Tissue Doppler/Mitral Doppler indices are consistent with impaired relaxation (Stage I diastolic dysfunction). ). Normal appearance of the mitral valve. Trace mitral regurgitation. Normal appearance of the tricuspid valve. The estimated Peak RVSP is 25 mmHg. There is trace tricuspid regurgitation. There is trace pulmonic regurgitation. Electronically Signed By: Deonte Marquis 2018-09-08 13:41:37 PDT
== END 2018-09-08 11:14 | disposition home or self-care (01) ==
LOC: E/R 18:05 → TEL 19:52
PROVIDERS: ADMIT Internal Medicine; ATTEND Hospitalist
DX: R07.9 Chest pain, unspecified (principal); Z79.82 Long term (current) use of aspirin
CPT/HCPCS: 36415; 71045; 78452; 80048; 80053; 80061; 82550; 82553; 83036; 83735; 84443; 84484; 85025; 93005; 93017; 93306; A9500; A9505; J1644; J2785; Z7500; Z7502; Z7610; G0378